=== PATIENT | male | born 1985 | race Caucasian/White ===

== ENCOUNTER 2018-11-22 07:23 | Day surgery (SDC) | payer OTHER ==
[~2018-11-22 07:23] MED LIST: Buffered Lidocaine 1% SYRIN* 1 ML/SYRINGE INTRADERM ONE; Famotidine IV* 10 MG/ML 2 ML (20 mg) IV ONE; Lactated Ringers 1000 ML Bag* 1,000 ML IV SCH
[2018-11-22] MEDS ORDERED: Ketorolac INJ* 30 MG/ML 1 ML VIAL IV PRN (07:25)
[2018-11-22] MEDS ORDERED: DiMENhydriNATE IV* 50 MG/ML VIAL IV PUSH PRN (07:25)
[2018-11-22] MEDS ORDERED: oxyCODONE/Acetamin 5/325 MG* TAB PO PRN (07:25)
[2018-11-22] MEDS ORDERED: Naloxone* 0.4 MG/ML 1 ML VIAL IV PRN (07:25)
[2018-11-22] MEDS ORDERED: HYDROcodone/ACETAMIN 5-325 MG* 1 TAB PO PRN (07:25)
[2018-11-22] MEDS ORDERED: fentaNYL* 50 MCG/ML 2 ML VIAL (100 MCG VIAL) IV PRN (07:25)
[2018-11-22] MEDS ORDERED: Clindamycin 900 MG/D5W BAG(*) 900 MG/50 ML BAG IVPB ONE (08:10)
[2018-11-22] MEDS ORDERED: Famotidine IV* 10 MG/ML 2 ML (20 mg) ONE (08:10)
[2018-11-22] MEDS ORDERED: Bupivacaine 0.5% W/EPI SDV* 30 ML VIAL ONE (09:06)
[2018-11-22] MEDS ORDERED: Midazolam* 1 MG/ML 5 ML VIAL (5 MG) ONE (09:07)
[2018-11-22] MEDS ORDERED: fentaNYL* 50 MCG/ML 2 ML VIAL (100 MCG VIAL) ONE ×3 (09:07→11:12)
[2018-11-22] MEDS ORDERED: Propofol* 10 MG/ML 20 ML BTL ONE (09:21)
[2018-11-22] MEDS ORDERED: Lidocaine 2% PF * 5 ML VIAL ONE (09:21)
[2018-11-22] MEDS ORDERED: Succinylcholine* 20 MG/ML 10 ML VIAL ONE (09:22)
[2018-11-22] MEDS ORDERED: Ondansetron INJ* 2 MG/ML VIAL ONE (10:37)
--- NOTE | 2018-11-22 11:39 | BRIEFOPN ---
Brief Operative Note - Surgery Procedures: OPERATIVE REPORT Pre-op: Pilonidal disease Post-Op: Same, abscess noted Procedure:Excision of pilonidal disease Surgeon: MD Abigail Asst: none Anes: general with local , Dr. Bolden EBL:min Specimen: Pilonidal skin and subcutaneous tissue Drain: #7 POLINA drain Wound: 4 To PACU
[2018-11-22 12:26] VITALS: BP 119/75
--- NOTE | 2018-11-22 20:46 | OP ---
DATE OF OPERATION: 11/22/18 - [facility] DATE OF : 83 SURGEON: Simba Hayes MD [employer] OPERATOR: None. ANESTHESIOLOGIST: Dr. Bolden. ANESTHESIA: General with local. PRE-OP DIAGNOSIS: Pilonidal cyst with sinus tract. POST-OP DIAGNOSIS: Pilonidal cyst with sinus tract and subcutaneous abscess. OPERATIVE PROCEDURE: Excision of pilonidal cyst and sinus tract. ESTIMATED BLOOD LOSS: Minimal. SPECIMENS: Pilonidal skin and subcutaneous tissue. DRAIN: #7 POLINA drain. WOUND CLASSIFICATION: IV. COMPLICATIONS: None. FINDINGS: The patient had some pilonidal lesion along the midline of the cleft and a chronic sinus tract approximately 2.5 to 3 cm to the right of midline on the buttock cheek. Also noted at dissection was a subcutaneous abscess in this area, which was drained and subsequently excised. DESCRIPTION OF PROCEDURE: Written informed consent was obtained, the site was marked with indelible ink and preoperative antibiotics were administered. The patient was taken to the operating room and general anesthesia was administered. He was placed in the prone jackknife position. Sequential compression devices and a warming blanket were applied. The perineum and buttock cheeks were then taped spread open. Appropriate skin flap markings were placed on the skin and the area was prepped and draped in usual sterile fashion. Time-out verification was completed. 0.25% Marcaine with 1% lidocaine was infiltrated extensively in the area of the cleft. I had marked an elliptical incision just to the right of midline and using a # 15 blade knife, an elliptical incision of skin in the vertical orientation was used to excise the midline pits and also the ellipse on the right was used to extend out onto the right buttock cheek to include the external opening of the chronic sinus to include this in the removal of area of the skin and the subcutaneous tissue. There was noted to be chronic inflammation as well as some purulent material, which was drained, consistent with an abscess. All of this area was excised with healthy subcutaneous tissue surrounding this. The area was irrigated and hemostasis was assured. I then fashioned a subcutaneous skin flap to the left of midline extending out onto the healthy subcutaneous tissue of the left buttock in preparation for closure. Skin flap was also raised laterally on the right side. The deeper layers of the incision were then closed with interrupted 3-0 Vicryl suture. I placed a #7 POLINA drain in the subcutaneous space. One more layer of 3- 0 interrupted Vicryl suture was used to close the subcutaneous site. The #7 POLINA drain was exited through a stab wound to the right and upper portion from the incision. The skin was then approximated with a running subcuticular 2-0 nylon suture, which was knotted at the superior to inferior aspect of the incision. Steri- Strips and sterile dressings were applied. The drain was sutured to the skin at its exit site with several 3-0 Prolene sutures. The patient tolerated the procedure well and was taken to the recovery room in stable condition. [id number] #: [id number] JSEUS
== END 2018-11-22 12:38 | disposition home or self-care (01) ==
LOC: OR 07:23
PROVIDERS: ATTEND Surgery
DX: L05.91 Pilonidal cyst without abscess (principal); J45.909 Unspecified asthma, uncomplicated; Z72.0 Tobacco use; I73.00 Raynaud's syndrome without gangrene
CPT/HCPCS: 88304; J0330; J2250; J2405; J2704; J3010